=== PATIENT | female | born 1980 | race Caucasian/White ===

== ENCOUNTER 2017-04-03 19:19 | Emergency (ER) | payer SELFPAY ==
[~2017-04-03] VITALS: Ht 167.6 cm; Wt 63.6 kg
[~2017-04-03 19:19] MED LIST: AFRIN 12 HOUR0.05 %; AMOXICILLIN500 MG PO; ATUSS DS OR; AUGMENTIN875TAB PO; CEPHALEXIN500 MG PO; CIPROFLOXACN500 MG PO; DENIES CURRENT MEDS; DICLOFENAC50 MG PO; DOXYCYC MONO100 M1 OR; FLEXERIL OR; FLEXERIL PO; FLONASE NASAL50 MCG; GENTAMICIN15 ML/BTL OP; LAMISIL AT ATHLET1 % EX; LORTAB 10-325 M1 TAB PO; LORTAB 5 OR; LORTAB5 OR; MEDDOSEPAK PO; MOTRIN800 MG PO; NAPROSYN500 MG PO; NO; NO HOME MEDS; SEASONALE OR; TESSALON PER100 MG PO; TORADOL OR; TRAMADOL HCL50 MG OR; TYLENOL # 31 TA1 PO; ULTRAM50 M1 PO; ULTRAM50 MG OR; ULTRAM50 MG PO; ZITHROMAX250 MG PO; ZPAK OR
[2017-04-03] MEDS ORDERED: PERCOCET 5/325M1 TAB PO (21:28)
[2017-04-03] MEDS ORDERED: ORPHENADRINE100 MG PO (21:28)
[2017-04-03 21:35] VITALS: BP 110/64
== END 2017-04-03 21:40 | disposition home or self-care (01) | DRG 74 ==
LOC: ED 19:19
DX: M54.12 Radiculopathy, cervical region (principal)

== ENCOUNTER 2017-07-11 08:45 | Day surgery (SDC) | payer OTHER ==
[~2017-07-11] VITALS: Ht 165.1 cm; Wt 61.2 kg
[~2017-07-11 08:45] MED LIST changes: +NORCO1 TA2 PO; +ORPHENADRINE100 MG PO; +PERCOCET 5/325M1 TAB PO; +TYLENOL 8 HOUR650 MG
[2017-07-11 11:35] VITALS: BP 134/61
== END 2017-07-11 11:10 | disposition home or self-care (01) | DRG 552 ==
LOC: ORM 08:45
PROVIDERS: ATTEND Anesthesiology Pain Medicine
PROC: 3E0T3BZ Introduction of Anesthetic Agent into Peripheral Nerves and Plexi, Percutaneous Approach (ICD-10-PCS; principal; 2017-07-11)
PROC: 3E0T33Z Introduction of Anti-inflammatory into Peripheral Nerves and Plexi, Percutaneous Approach (ICD-10-PCS; 2017-07-11)
DX: M54.2 Cervicalgia (principal); M48.02 Spinal stenosis, cervical region

== ENCOUNTER 2017-07-25 06:46 | Day surgery (SDC) | payer OTHER ==
[~2017-07-25] VITALS: Ht 165.1 cm; Wt 59.0 kg
[2017-07-25 09:09] VITALS: BP 106/68
== END 2017-07-25 09:05 | disposition home or self-care (01) | DRG 552 ==
LOC: ORM 06:46
PROVIDERS: ATTEND Anesthesiology Pain Medicine
PROC: 3E0T3BZ Introduction of Anesthetic Agent into Peripheral Nerves and Plexi, Percutaneous Approach (ICD-10-PCS; principal; 2017-07-25)
PROC: 3E0T33Z Introduction of Anti-inflammatory into Peripheral Nerves and Plexi, Percutaneous Approach (ICD-10-PCS; 2017-07-25)
DX: M54.2 Cervicalgia (principal); M48.02 Spinal stenosis, cervical region

== ENCOUNTER 2017-11-28 06:56 | Day surgery (SDC) | payer OTHER ==
[~2017-11-28] VITALS: Ht 165.1 cm; Wt 59.0 kg
[~2017-11-28 06:56] MED LIST changes: +BC FAST PAI1 PO; +EQL IBUPROFEN200 MG PO; +TYLENOL 500MG TAB PO
[2017-11-28] MEDS ORDERED: BC FAST PAI1 PO (07:08)
[2017-11-28 08:26] VITALS: BP 106/72
== END 2017-11-28 08:30 | disposition home or self-care (01) | DRG 552 ==
LOC: ORM 06:56
PROVIDERS: ATTEND Anesthesiology Pain Medicine
PROC: 3E0T3BZ Introduction of Anesthetic Agent into Peripheral Nerves and Plexi, Percutaneous Approach (ICD-10-PCS; principal; 2017-11-28)
PROC: 3E0T33Z Introduction of Anti-inflammatory into Peripheral Nerves and Plexi, Percutaneous Approach (ICD-10-PCS; 2017-11-28)
DX: M54.2 Cervicalgia (principal); M54.6 Pain in thoracic spine; M48.02 Spinal stenosis, cervical region

== ENCOUNTER 2018-01-04 21:16 | Emergency (ER) | payer OTHER ==
[~2018-01-04] VITALS: Ht 165.1 cm; Wt 61.0 kg
[2018-01-04 22:53] LABS: HEMATOCRIT 36.8 % (37.0-47.0); HEMOGLOBIN 12.6 g/dl (12.0-16.0); IMMATURE GRANULOCYTES 0.3 % (0.0-1.0); MEAN CELL VOLUME 92.2 fL CALC (80.0-100.0); MEAN CORPUSCULAR HGB 31.6 pG CALC (26.0-32.0); MEAN CORPUSCULAR HGB CONC 34.2 g/L CALC (32.0-36.0); NEUT# 8.25 thou/uL (2.00-7.15); RED BLOOD COUNT 3.99 mill/uL (4.20-5.60); RED CELL DISTRI WIDTH 11.9 % (11.5-15.5)
[2018-01-04 23:11] LABS: ALBUMIN 3.9 g/dL (3.2-5.0); ALKALINE PHOSPHATASE 68 u/l (38-126); ANION GAP 15 (6-22 (CALC)); BILIRUBIN, TOTAL 0.9 mg/dL (0.0-1.4); BUN 9 mg/dL (7-17); BUN/CREATININE RATIO 11 (12-20 (CALC)); CARBON DIOXIDE 29 mmol/l (22-30); CHLORIDE 104 mmol/l (95-108); CREATININE 0.8 mg/dL (0.5-1.0); GFR > 60 ML/MIN (>=60 (CALC)); GFR FOR AFR.AMER. > 60 ML/MIN (>=60 (CALC)); POTASSIUM 3.9 mmol/l (3.5-5.1); SGOT/AST 16 u/l (14-36); SGPT/ALT 25 u/l (9-52); SODIUM 144 mmol/l (137-146); TOTAL PROTEIN 7.1 g/dL (6.3-8.2)
[2018-01-05 00:07] LABS: URINE BILIRUBIN - DIPSTICK NEGATIVE (NEGATIVE); URINE BLOOD DIPSTICK NEGATIVE (NEGATIVE); URINE COLOR YELLOW; URINE GLUCOSE - DIPSTICK NEGATIVE (NEGATIVE); URINE KETONE NEGATIVE (NEGATIVE); URINE LEUK ESTERASE NEGATIVE (NEGATIVE); URINE NITRITE - DIPSTICK NEGATIVE (Negative); URINE PROTEIN - DIPSTICK NEGATIVE (NEG-TRACE); URINE UROBILINOGEN - DIPSTICK 0.2 E.U./dL (0.2)
[2018-01-05 00:08] LABS: URINE CLARITY SL CLOUDY
[2018-01-05 01:27] LABS: INFLUENZA A NONE DETECTED (NONE DETECT); INFLUENZA B NONE DETECTED (NONE DETECT)
[2018-01-05] MEDS ORDERED: AUGMENTIN875TAB PO (02:04)
[2018-01-05 02:20] VITALS: BP 118/77
== END 2018-01-05 02:23 | disposition home or self-care (01) | DRG 153 ==
LOC: ED 21:16
PROVIDERS: Emergency Medicine
DX: J02.0 Streptococcal pharyngitis (principal); J32.9 Chronic sinusitis, unspecified

== ENCOUNTER 2018-11-20 06:55 | Day surgery (SDC) | payer OTHER ==
[~2018-11-20 06:55] MED LIST changes: +MACROBID100 MG PO; +METRONIDAZOL500 MG PO
[2018-11-20] MEDS ORDERED: NORCO1 TA2 PO (08:37)
[2018-11-20 08:46] VITALS: BP 118/78
[2018-12-10] MEDS ORDERED: NORCO1 TA2 PO (12:40)
== END 2018-11-20 08:50 | disposition home or self-care (01) ==
LOC: ORM 06:55
PROVIDERS: ATTEND Anesthesiology Pain Medicine
DX: M54.2 Cervicalgia (principal); M48.02 Spinal stenosis, cervical region

== ENCOUNTER → 2018-12-10 | Outpatient (REF) | payer OTHER ==
[2018-12-10 12:14] VITALS: BP 128/78
== END | disposition home or self-care (01) | DRG 951 ==
LOC: PAIN/MGT 11:53
PROVIDERS: ATTEND Anesthesiology Pain Medicine
DX: Z09 Encounter for follow-up examination after completed treatment for conditions other than malignant neoplasm (principal)

== ENCOUNTER 2019-01-01 08:19 | Day surgery (SDC) | payer OTHER ==
[~2019-01-01] VITALS: Ht 165.1 cm; Wt 61.2 kg
[2019-01-01 10:23] VITALS: BP 107/67
== END 2019-01-01 10:32 | disposition home or self-care (01) ==
LOC: ORM 08:19
PROVIDERS: ATTEND Anesthesiology Pain Medicine
DX: M54.2 Cervicalgia (principal); M12.9 Arthropathy, unspecified

== ENCOUNTER 2019-03-12 05:50 | Day surgery (SDC) | payer OTHER ==
[2019-03-12 08:13] VITALS: BP 122/66
== END 2019-03-12 08:22 | disposition home or self-care (01) ==
LOC: ORM 05:50
PROVIDERS: ATTEND Anesthesiology Pain Medicine
DX: M54.2 Cervicalgia (principal); M48.02 Spinal stenosis, cervical region

== ENCOUNTER 2019-05-25 13:14 | Emergency (ER) | payer OTHER ==
[~2019-05-25] VITALS: Ht 165.1 cm; Wt 60.0 kg
[~2019-05-25 13:14] MED LIST changes: +DICLOFENAC75 MG PO
[2019-05-25 14:44] VITALS: BP 127/93
== END 2019-05-25 14:52 | disposition home or self-care (01) ==
LOC: ED 13:14
DX: F41.9 Anxiety disorder, unspecified (principal); F45.8 Other somatoform disorders; Z63.8 Other specified problems related to primary support group

== ENCOUNTER 2019-07-15 10:38 | Emergency (ER) | payer OTHER ==
[~2019-07-15] VITALS: Ht 165.1 cm; Wt 57.0 kg
[2019-07-15] MEDS ORDERED: PERCOCET 5/325M1 TAB PO (11:54)
[2019-07-15] MEDS ORDERED: NO HOME MEDS (12:21)
[2019-07-15 12:23] VITALS: BP 115/67
== END 2019-07-15 12:23 | disposition home or self-care (01) ==
LOC: ED 10:38
DX: S89.92XA Unspecified injury of left lower leg, initial encounter (principal); X50.0XXA Overexertion from strenuous movement or load, initial encounter; Y93.83 Activity, rough housing and horseplay
CPT/HCPCS: L1830

== ENCOUNTER 2021-03-24 07:30 | Emergency (ER) | payer OTHER ==
[~2021-03-24] VITALS: Ht 165.1 cm; Wt 70.0 kg
[~2021-03-24 07:30] MED LIST changes: +CVS IBUPROFEN200 M3 PO
[2021-03-24] MEDS ORDERED: AMOXICILLIN500 MG PO (08:34)
[2021-03-24] MEDS ORDERED: TAM75CAP PO (08:34)
[2021-03-24 08:46] VITALS: BP 132/76
== END 2021-03-24 08:48 | disposition home or self-care (01) ==
LOC: ED 07:30
DX: J11.1 Influenza due to unidentified influenza virus with other respiratory manifestations (principal); Z20.822 Contact with and (suspected) exposure to COVID-19

== ENCOUNTER 2021-09-11 10:36 | Emergency (ER) | payer OTHER ==
[~2021-09-11] VITALS: Ht 165.1 cm; Wt 61.6 kg
[~2021-09-11 10:36] MED LIST changes: +TAM75CAP PO
[2021-09-11] MEDS ORDERED: TRAMADOL HYDROC50 M1 PO (10:55)
[2021-09-11] MEDS ORDERED: IBUPROFEN600 MG PO (10:55)
[2021-09-11] MEDS ORDERED: FLEXERIL5 M1 PO (10:55)
[2021-09-11 11:14] VITALS: BP 111/64
== END 2021-09-11 11:14 | disposition home or self-care (01) ==
LOC: ED 10:36
DX: M54.50 Low back pain, unspecified (principal)

== ENCOUNTER 2022-02-13 06:57 | Emergency (ER) | payer OTHER ==
[~2022-02-13] VITALS: Ht 165.1 cm; Wt 63.3 kg
[~2022-02-13 06:57] MED LIST changes: +FLEXERIL5 M1 PO; +IBUPROFEN600 MG PO; +TRAMADOL HYDROC50 M1 PO
[2022-02-13 07:06] VITALS: BP 107/68
[2022-02-13] MEDS ORDERED: TORADOL PO (07:14)
[2022-02-13 07:15] VITALS: BP 102/71
[2022-02-13] MEDS ORDERED: FLEXERIL5 M1 PO (07:23)
[2022-02-13 07:30] VITALS: BP 101/67
== END 2022-02-13 07:34 | disposition home or self-care (01) ==
LOC: ED 06:57
DX: M54.50 Low back pain, unspecified (principal)

== ENCOUNTER 2022-10-24 19:40 | Emergency (ER) | payer OTHER ==
[~2022-10-24] VITALS: Ht 165.1 cm; Wt 135.0 kg
[2022-10-24] VITALS (10 sets, daily range): BP systolic 92–109; BP diastolic 50–67
[~2022-10-24 19:40] MED LIST changes: +TORADOL PO
[2022-10-24 21:26] LABS: BASO% 0.1 % (0-3); EOS% 0.6 % (0-8); HEMATOCRIT 35.8 % (37.0-47.0); HEMOGLOBIN 12.1 g/dl (12.0-16.0); IMMATURE GRANULOCYTES 0.3 % (0.0-5.0); LYMPH% 9.4 % (15-41); MEAN CELL VOLUME 93.7 fL CALC (80.0-100.0); MEAN CORPUSCULAR HGB 31.7 pG CALC (26.0-32.0); MEAN CORPUSCULAR HGB CONC 33.8 g/dL CAL (32.0-36.0); MONO% 11.9 % (2-13); NEUT# 9.62 thou/uL (2.00-7.15); NEUT% 77.7 % (42-76); RED BLOOD COUNT 3.82 mill/uL (4.20-5.60); RED CELL DISTRI WIDTH 11.9 % (11.5-15.5)
[2022-10-24 23:10] LABS: URINE BILIRUBIN - DIPSTICK NEGATIVE (NEGATIVE); URINE BLOOD DIPSTICK TRACE-INTACT (NEGATIVE); URINE COLOR YELLOW; URINE GLUCOSE - DIPSTICK NEGATIVE (NEGATIVE); URINE KETONE NEGATIVE (NEGATIVE); URINE PH 6.5 (4.5-8.0); URINE UROBILINOGEN - DIPSTICK 0.2 E.U./dL (0.2)
[2022-10-24 23:22] LABS: URINE LEUK ESTERASE SMALL (NEGATIVE); URINE NITRITE - DIPSTICK POSITIVE (Negative); URINE PROTEIN - DIPSTICK NEGATIVE (NEG-TRACE)
[2022-10-24 23:24] LABS: URINE BACTERIA MANY hpf; URINE EPITHELIAL CELLS FEW EPI/hpf (0-FEW)
[2022-10-24] MEDS ORDERED: KEFLEX500 MG PO (23:29)
== END 2022-10-24 23:35 | disposition home or self-care (01) ==
LOC: ED 19:40
PROVIDERS: Family Medicine
DX: N39.0 Urinary tract infection, site not specified (principal); B96.20 Unspecified Escherichia coli [E. coli] as the cause of diseases classified elsewhere; J10.1 Influenza due to other identified influenza virus with other respiratory manifestations; Z20.822 Contact with and (suspected) exposure to COVID-19

== ENCOUNTER 2023-02-18 18:51 | Emergency (ER) | payer OTHER ==
[~2023-02-18] VITALS: Ht 165.1 cm; Wt 64.0 kg
[~2023-02-18 18:51] MED LIST changes: +KEFLEX500 MG PO
[2023-02-18 19:04] VITALS: BP 113/55
[2023-02-18] MEDS ORDERED: KEFLEX500 MG PO (19:25)
[2023-02-18 19:39] VITALS: BP 113/55
== END 2023-02-18 19:52 | disposition home or self-care (01) ==
LOC: ED 18:51
DX: S91.312A Laceration without foreign body, left foot, initial encounter (principal); W45.0XXA Nail entering through skin, initial encounter